=== PATIENT | female | born 1985 | race Caucasian/White ===

== ENCOUNTER → 2016-12-31 | Outpatient (REF) | payer BC ==
[2016-12-31 13:34] LABS: MEAN CORPUSCULAR HEMOGLOBIN 31.8 pg (27.0-33.0); MEAN CORPUSCULAR HGB CONC 34.7 g/dl (32.0-36.5); MEAN CORPUSCULAR VOLUME 91.6 fl (80.0-96.0); RED CELL DISTRIBUTION WIDTH 12.1 % (11.5-14.5)
[2016-12-31 14:17] LABS: HBsAg Prenatal NEGATIVE (NEGATIVE)
[2016-12-31 14:45] LABS: HIV SCREEN CENTAUR NEGATIVE (NEGATIVE)
== END ==
LOC: M LAB REF 12:41
PROVIDERS: ATTEND Obstetrics & Gynecology
DX: O36.80X0 Pregnancy with inconclusive fetal viability, not applicable or unspecified (principal); Z3A.00 Weeks of gestation of pregnancy not specified

== ENCOUNTER → 2017-01-27 | Outpatient (REF) | payer BC | LOC: M LAB REF 12:47 | PROVIDERS: ATTEND Obstetrics & Gynecology | DX: O36.80X0 Pregnancy with inconclusive fetal viability, not applicable or unspecified (principal); Z3A.00 Weeks of gestation of pregnancy not specified ==

== ENCOUNTER → 2017-05-25 | Outpatient (CLI) | payer MEDICAID ==
[2017-05-25 10:58] LABS: MEAN CORPUSCULAR HEMOGLOBIN 33.1 pg (27.0-33.0); MEAN CORPUSCULAR HGB CONC 35.2 g/dl (32.0-36.5); MEAN CORPUSCULAR VOLUME 93.9 fl (80.0-96.0); RED CELL DISTRIBUTION WIDTH 13.1 % (11.5-14.5)
== END ==
LOC: M LAB 09:10
PROVIDERS: ATTEND Obstetrics & Gynecology
DX: Z36 Encounter for antenatal screening of mother (principal); Z3A.26 26 weeks gestation of pregnancy

== ENCOUNTER → 2017-07-27 | Outpatient (REF) | payer OTHER | LOC: M LAB REF 13:17 | PROVIDERS: ATTEND Obstetrics & Gynecology | DX: Z34.83 Encounter for supervision of other normal pregnancy, third trimester (principal); Z3A.00 Weeks of gestation of pregnancy not specified ==

== ENCOUNTER 2017-08-28 17:11 | Inpatient (IN) | payer OTHER ==
[~2017-08-28] VITALS: Ht 157.5 cm; Wt 88.1 kg
[2017-08-28 17:27] VITALS: BP 137/83
[2017-08-28 17:44] LABS: MEAN CORPUSCULAR HEMOGLOBIN 31.4 pg (27.0-33.0); MEAN CORPUSCULAR HGB CONC 33.9 g/dl (32.0-36.5); MEAN CORPUSCULAR VOLUME 92.6 fl (80.0-96.0); PLATELET COUNT, AUTOMATED 237 10^3/uL (150-450); RED CELL DISTRIBUTION WIDTH 13.6 % (11.5-14.5); WHITE BLOOD COUNT 8.9 10^3/uL (4.0-10.0)
[2017-08-28] MEDS ORDERED: PRENTAB55 PO (17:47)
--- NOTE | 2017-08-28 18:25 | HPEPDOC ---
Obstetrical History & Physical General Date of Admission Aug 28, 2017 at 17:11 Primary Care Physician: JOSELUIS WOODRUFF CNM History of Present Illness Patient is a 31-year-old female who is a at 40.3 weeks gestation with an KAVITHA of 08/25/17 based off of her LMP and consistent with her 1st trimester ultrasound. She initiated care in her first trimester at [facility]. Her has been uncomplicated. She present to L&D for an elective induction of labor. She denies contractions, vaginal bleeding, or leaking of fluid. She reports baby has been active. Chief Complaint: Induction of labor Information Provided By: Patient Age: 31 : 3 Term: 2 Pre-term: 0 Abortions: 0 Livin Care Care: Good Care Dating Final EDC: Aug 25, 2017 Final EDC by: LMP LMP: Nov 18, 2016 EGA at Admission: 40.3 Antepartum Course Height (inches): 62 Pre- weight (lbs.): 145 Admission Weight (lbs.): 192 Change in Weight (lbs.): 47 Past Medical History Past Obstetrical History #1: Past Obstetrical History: Multigravida Gestation: 38 Type of Delivery: Spontaneous Vaginal Del. (April 2007) Sex of Infant: Female (weighting 6 lbs 7 oz ) Complications: Yes (low MELISSA-induced) Past Obstetrical History #2: Gestation: 39 Type of Delivery: Spontaneous Vaginal Del. (April 2011) Sex of : Female (weighting 6 lbs 5 oz) Complications: No MANAGER DEPARTMENT History: No pertinent history Past Medical History Medical History Varicella as a child Surgical History: Denies/None Family History Significant Family History: No pertinent family hx Social History Marital Status: Family situation: Spouse/partner home Psychosocial History: No pertinent psych hx * Smoker: non-smoker Alcohol: Denies Drugs: denies Abuse Violence Screening Have you been hit/kicked/slapp: No Have you been sexually assault: No Imunizations Tdap status: current Allergies Coded Allergies: No Known Drug Allergy (Verified Allergy, Unknown, 01/14/13) Morphine (Verified Adverse Reaction, Intermediate, N/V, 01/14/13) Medications Miscellaneous Medications Multivitamins/ ( 19) 1 Tab Tab, 1 TAB PO Physical Examination Physical Examination GENERAL: Alert and oriented times three. BREAST: . ABDOMEN: Gravid and non-tender to touch. FETUS: Is vertex (VTX) by sterile vaginal examination (SVE), fetus is vertex ( VTX) by Santos. HEART RATE: Regular rate and rhythm. LUNGS: Clear to auscultation (CTA). EXTREMITIES: No edema. No clonus. Deep tendon reflexes (DTRs) + . Vital Signs/I&O Vital Signs Date Time Temp Pulse Resp B/P (MAP) Pulse Ox O2 Delivery O2 Flow Rate FiO2 08/28/17 17:27 99.0 110 16 137/83 (101) Laboratory Data 24H LABS Laboratory Tests 2 08/28/17 17:17: Serology Scanned Report Hepatitis B Testing 08/28/17 17:35: Nucleated Red Blood Cells % (auto) 0.0, Urine Amphetamines Screen NEGATIVE, Urine Benzodiazepines Screen NEGATIVE, Urine Opiates Screen NEGATIVE, Urine Methadone Screen NEGATIVE, Urine Barbiturates Screen NEGATIVE, Urine Phencyclidine Screen NEGATIVE, Urine Cocaine Metabolite Screen NEGATIVE, Urine Cannabinoids Screen NEGATIVE CBC/BMP Laboratory Tests 08/28/17 17:35 Red Blood Count 3.76 L, Mean Corpuscular Volume 92.6, Mean Corpuscular Hemoglobin 31.4, Mean Corpuscular Hemoglobin Concent 33.9, Red Cell Distribution Width 13.6 Urine Culture: No Growth Pertinent Laboratoy Data Blood Type: A+ RBC Antibody Screen: Negative HIV: Negative Hepatitis B: Negative Hepatitis C: Negative Rapid Plasma Reagin: Nonreactive Rubella: Immune Chlamydia/Gonorrhea: Negative Group B Streptococcus: Negative Quad Screen Test: Declined Cystic Fibrosis: Declined Glucose Tolerance Test: 127 Vaginal Examination Dilation: other (1-2) Effacement: 40-50% Station: -3 Cervical Consistency: Soft Cervical Position: Posterior Presentation: Cephalic presentation Position: Vertex (occiput) Assessment Heart Rate (FHR): 135 Variability: Moderate Accelerations: Positive Decelerations: None Tocometer Contractions: Yes Frequency: greater than 10 min/apart Multi-drug resistant Organism: No history of MDRO Assessment/Plan Assessment IUP at 40.3 weeks gestation GBS negative Category I FHR tracing elective induction of labor Plan Admit to labor and delivery Chain Sales Consultant and consent. Diet: regular. Group B Streptococcus (GBS) negative. Labs and intravenous (IV) per unit protocol. Counseled on induction. Risks, benefits, and alternatives reviewed. Patient desires induction. Cytotec ordered. Anticipate cervical ripening. JOSELUIS WOODRUFF CNM Aug 28, 2017 18:25
[2017-08-28] MEDS: miSOPROStol 50 MCG 1/2 TAB (S0191) PO SCH ×2 (18:32→23:03)
[2017-08-28] MEDS: LACTATED RINGER'S 1000 ML IV STA (18:33)
[2017-08-28 19:15] VITALS: BP 125/78
[2017-08-28 20:35] VITALS: BP 121/77
[2017-08-28 21:59] VITALS: BP 110/70
[2017-08-28 23:06] VITALS: BP 113/66
[2017-08-29] VITALS (37 sets, daily range): BP systolic 68–162; BP diastolic 37–109
[2017-08-29] MEDS ORDERED: hydrOXYzine 50 MG TAB PO ONE (00:15)
[2017-08-29] MEDS: miSOPROStol 50 MCG 1/2 TAB (S0191) PO SCH (03:05)
[2017-08-29] MEDS ORDERED: LR 1,000 ML IV SCH (06:35)
--- NOTE | 2017-08-29 06:41 | IPNPDOC ---
Text Note Date of Service The patient was seen on 08/29/17. NOTE Subjective: Patient reports cramping and feeling contractions. She reports being slightly uncomfortable. Objective: Category I FHR tracing. SVE: 3/75/-2, anterior, soft, scant bloody show. Assessment: IUP at 40.4 weeks gestation, Category I FHR tracing Plan: Pitocin ordered and to be started at 0700. Reviewed plan of care with patient and . Patient and agree with plan of care. Anticipate cervical change and . VS,Fishbone, I+O VS, Fishbone, I+O Vital Signs Date Time Temp Pulse Resp B/P (MAP) Pulse Ox O2 Delivery O2 Flow Rate FiO2 08/29/17 03:04 97.7 77 18 126/77 (93) JOSELUIS WOODRUFF CNM Aug 29, 2017 06:41
[2017-08-29] MEDS ORDERED: OXYTOCIN DRIP 30 UNITS in APPROPRIATE DILUENT 1 EA IV SCH ×2 (06:45→14:01)
[2017-08-29] MEDS: LACTATED RINGER'S 1000 ML IV STA (07:47)
[2017-08-29] MEDS ORDERED: FENTANYL 2MCG/ML ROPIVACAINE 0.2% IN 0.9% NACL 200ML IVBAG As Ordered ONE (08:14)
[2017-08-29] MEDS: PRENATAL VITAMINS CHEWABLE TABLET PO SCH (09:00)
[2017-08-29] MEDS ORDERED: EPIDURAL/PCA KEYS XX PRN (10:00)
[2017-08-29] MEDS ORDERED: EPIDURAL COMMENT XX SCH (10:00)
[2017-08-29] MEDS ORDERED: LACTATED RINGER'S 1000 ML IV PRN (10:00)
[2017-08-29] MEDS ORDERED: ePHEDrine SULFATE 25 MG/5 ML(5MG/ML) SYRINGE IV PRN (10:00)
[2017-08-29] MEDS ORDERED: ONDANSETRON 4MG/2ML VIAL (J2405) IV PRN (10:00)
[2017-08-29] MEDS ORDERED: FENTANYL/ROPIVACAINE/NACL BAG 200 ML EPIDURAL SCH (10:00)
[2017-08-29] MEDS ORDERED: NALOXONE INJ 0.4 MG/1 ML VIAL (J2310) IV PRN (10:00)
[2017-08-29] MEDS ORDERED: REFRIGERATOR IV KEYS XX PRN (10:00)
[2017-08-29] MEDS ORDERED: diphenhydrAMINE INJ 50MG/ML VIAL (J1200) IV PRN (10:00)
[2017-08-29] MEDS ORDERED: MEASLES,MUMPS,RUBELLA VACCINE INJ (MMR-II) (90707) SC SCH (14:15)
[2017-08-29] MEDS ORDERED: METHYLERGONOVINE MALEATE 0.2 MG TAB PO PRN (14:15)
[2017-08-29] MEDS ORDERED: DOCUSATE SODIUM 100 MG CAP PO PRN (14:15)
[2017-08-29] MEDS ORDERED: RHOGAM 300 MCG (1500 IU) INJ (J2790) IM SCH (14:15)
[2017-08-29] MEDS ORDERED: DIBUCAINE 1% OINTMENT 30GM TOP PRN (14:15)
[2017-08-29] MEDS ORDERED: ANUSOL HC CREAM 30GM TOP PRN (14:15)
[2017-08-29 14:17] LABS: CORD GAS ABE A -5.6; CORD GAS ABE V -4.4; CORD GAS HCO3 A 21.3 MEQ/L; CORD GAS HCO3 V 20.9 MEQ/L; CORD GAS O2 SAT A 28.4 %; CORD GAS O2 SAT V 62.7 %; CORD GAS PCO2 A 46.8 mmHg; CORD GAS PCO2 V 39.6 mmHg; CORD GAS PH A 7.277 UNITS; CORD GAS PH V 7.341 UNITS; CORD GAS PO2 A 15.5 mmHg; CORD GAS PO2 V 26.8 mmHg; CORD GAS SBC A 18.4 MEQ/L; CORD GAS TCO2 A 22.8 MEQ/L; CORD GAS TCO2 V 22.1 MEQ/L
--- NOTE | 2017-08-29 14:31 | DN ---
DATE OF DELIVERY: 08/29/2017 Nichole is a 31-year-old female 3, para 2-0-0-2 who was admitted at 40-3/7 weeks gestation for an induction. She underwent Cytotec followed by Pitocin and artificial rupture of membranes. She progressed to fully dilated, delivered a live male infant in left occiput anterior position with a nuchal cord times one. scores of 9 and 9. weight 8 pounds 3 ounces. Placenta delivered spontaneously intact, three-vessel cord. Vagina, cervix and perineum inspected. No laceration noted. Estimated blood loss 300 mL. Both mother and baby are in stable condition.
[2017-08-29] MEDS: IBUPROFEN 800 MG TAB PO PRN (14:59)
[2017-08-29] MEDS: ACETAMINOPHEN 500 MG TAB PO PRN (20:35)
[2017-08-30] MEDS: IBUPROFEN 800 MG TAB PO PRN (01:17)
[2017-08-30 06:00] VITALS: BP 111/61
[2017-08-30] MEDS: ACETAMINOPHEN 500 MG TAB PO PRN (08:03)
[2017-08-30] MEDS: PRENATAL VITAMINS CHEWABLE TABLET PO SCH (08:03)
== END 2017-08-30 15:05 | disposition home or self-care (01) | DRG 560 ==
LOC: M LDI 17:11 → M OBS 08-29 15:52
PROVIDERS: ADMIT Advanced Practice Midwife; ATTEND Obstetrics & Gynecology
PROC: 10E0XZZ Delivery of Products of Conception, External Approach (ICD-10-PCS; principal; 2017-08-29)
PROC: 10907ZC Drainage of Amniotic Fluid, Therapeutic from Products of Conception, Via Natural or Artificial Opening (ICD-10-PCS; 2017-08-29)
PROC: 3E0P7GC Introduction of Other Therapeutic Substance into Female Reproductive, Via Natural or Artificial Opening (ICD-10-PCS; 2017-08-29)
DX: O48.0 Post-term pregnancy (principal); Z37.0 Single live birth; Z3A.40 40 weeks gestation of pregnancy; O69.81X0 Labor and delivery complicated by cord around neck, without compression, not applicable or unspecified